=== PATIENT | female | born 1990 | race Two or more races ===

== ENCOUNTER 2021-10-10 13:04 | Emergency (ER) | payer OTHER ==
[~2021-10-10] VITALS: Ht 172.7 cm; Wt 72.6 kg
== END 2021-10-10 16:55 | disposition home or self-care (01) ==
LOC: ER 13:04
DX: K52.9 Noninfective gastroenteritis and colitis, unspecified (principal); A49.3 Mycoplasma infection, unspecified site

== ENCOUNTER 2023-01-22 16:50 | Emergency (ER) | payer OTHER ==
[~2023-01-22] VITALS: Ht 175.3 cm; Wt 70.8 kg
[2023-01-22] MEDS ORDERED: PEPCID20 MG PO (21:02)
[2023-01-22] MEDS ORDERED: ZOFRAN8 MG PO (21:02)
== END 2023-01-22 21:10 | disposition home or self-care (01) ==
LOC: ER 16:50
PROVIDERS: General Practice
DX: B34.9 Viral infection, unspecified (principal); R11.10 Vomiting, unspecified; Z20.822 Contact with and (suspected) exposure to COVID-19